=== PATIENT | male | born 1995 | race Hispanic/Latino ===

== ENCOUNTER 2017-07-29 10:30 | Outpatient (RCR) | payer OTHER | END 2017-08-24 | LOC: M ST 10:30 | DX: Z51.89 Encounter for other specified aftercare (principal); F80.81 Childhood onset fluency disorder ==

== ENCOUNTER 2017-08-05 08:35 | Outpatient (RCR) | payer OTHER | END 2017-08-24 | LOC: M ST 08:35 | DX: Z51.89 Encounter for other specified aftercare (principal); F80.81 Childhood onset fluency disorder ==

== ENCOUNTER 2017-08-26 10:38 | Outpatient (RCR) | payer OTHER | END 2017-09-21 | disposition home or self-care (01) | LOC: M ST 10:38 | DX: Z51.89 Encounter for other specified aftercare (principal); F80.81 Childhood onset fluency disorder | CPT/HCPCS: 92507 ==

== ENCOUNTER 2017-10-13 09:42 | Outpatient (RCR) | payer OTHER | END 2017-10-22 | LOC: M ST 10-19 08:58 | DX: Z51.89 Encounter for other specified aftercare (principal); F80.81 Childhood onset fluency disorder | CPT/HCPCS: 92507 ==

== ENCOUNTER 2017-11-01 13:27 | Outpatient (RCR) | payer OTHER | END 2017-11-21 | LOC: M ST 13:27 | DX: F80.81 Childhood onset fluency disorder (principal) | CPT/HCPCS: 92507 ==

== ENCOUNTER 2017-12-01 14:01 | Outpatient (RCR) | payer OTHER | END 2017-12-22 | LOC: M ST 14:01 | DX: F80.81 Childhood onset fluency disorder (principal) | CPT/HCPCS: 92507 ==